=== PATIENT | female | born 1965 | race Caucasian/White ===

== ENCOUNTER 2016-07-29 08:16 | Emergency (ER) | payer MEDICAID ==
[~2016-07-29] VITALS: Wt 69.0 kg
[~2016-07-29 08:16] MED LIST: AMLO5TAB4 PO; ASPI-664 PO; LEVO25TA53 PO
[2016-07-29 08:34] VITALS: TEMP 97.9
--- NOTE | 2016-07-29 08:59 | RADRPT ---
PROCEDURE: Chest Radiograph. CLINICAL INDICATION: Stroke TECHNIQUE: Single frontal chest radiograph. COMPARISON: Chest radiograph 01/17/2016 FINDINGS: The cardiomediastinal silhouette is within normal limits. There is mild right greater than left bas ilar atelectasis. No infiltrate or effusion is seen. The bones are intact. IMPRESSION: 1. Mild basilar atelectasis. 2. No evidence of acute cardiopulmonary disease. RPTAT: KK .Al Pak MD, MD Date Time Electronically viewed and signed by .Al Pak MD, on 07/29/2016 08:58 .B/
[2016-07-29] MEDS ORDERED: MECLIZINE 12.5 MG TAB PO ONE (09:00)
[2016-07-29 09:10] LABS: ADD SCAN DIFF NO
[2016-07-29 09:13] LABS: BASOPHILS % 0.6 % (0.0-2.0); EOSINOPHILS # 0.1 10^3/ul (0.0-0.5); EOSINOPHILS % 3.5 % (0.0-7.0); HEMATOCRIT 41.5 % (37.0-47.0); HEMOGLOBIN 13.6 g/dl (12.0-16.0); LYMPHOCYTES # 1.2 10^3/ul (0.8-2.9); LYMPHOCYTES % 33.5 % (15.0-51.0); MEAN CORPUSCULAR HEMOGLOBIN 28.9 pg (29.0-33.0); MEAN CORPUSCULAR HGB CONC 32.8 g/dl (32.0-37.0); MEAN CORPUSCULAR VOLUME 88.1 fl (82.0-101.0); MEAN PLATELET VOLUME 9.6 fl (7.4-10.4); MONOCYTE # 0.3 10^3/ul (0.3-0.9); MONOCYTES % 8.5 % (0.0-11.0); NEUTROPHIL # 1.8 10^3/ul (1.6-7.5); NEUTROPHILS % 53.3 % (39.0-77.0); PLATELET COUNT 263 10^3/UL (140-415); RED BLOOD COUNT 4.71 10^6/ul (4.20-5.40); RED CELL DISTRIBUTION WIDTH 13.1 % (11.5-14.5); WHITE BLOOD COUNT 3.4 10^3/ul (4.8-10.8)
[2016-07-29 09:27] LABS: ALBUMIN 4.3 g/dl (3.3-4.9); CHLORIDE 103 mmol/L (97-110)
[2016-07-29 09:28] LABS: POTASSIUM 4.1 mmol/L (3.5-5.1); SODIUM 144 mmol/L (135-144)
[2016-07-29 09:30] LABS: ALBUMIN/GLOBULIN RATIO 1.16; ANION GAP 18 (8-16); ASPARTATE AMINO TRANSFERASE 26 IU/L (15-46); BILIRUBIN,INDIRECT 0.3 mg/dl (0-1.1); BILIRUBIN,TOTAL 0.3 mg/dl (0.2-1.3); BLOOD UREA NITROGEN 13 mg/dl (7-20); CARBON DIOXIDE 27 mmol/L (21-31); CREATININE 0.63 mg/dl (0.44-1.00)
[2016-07-29 09:31] LABS: ALANINE AMINOTRANSFERASE 37 IU/L (13-69); ALKALINE PHOSPHATASE 113 IU/L (42-121); CALCIUM 9.8 mg/dl (8.4-10.2); GLUCOSE 107 mg/dl (70-220)
[2016-07-29 09:46] LABS: TROPONIN-I < 0.012 ng/ml (0.00-0.12)
[2016-07-29 10:02] VITALS: BP 140/83; PULSE 85; RESP 16
--- NOTE | 2016-07-29 10:09 | RADRPT ---
PROCEDURE: CT Brain without. CLINICAL INDICATION: Dizziness. Nausea and vomiting. TECHNIQUE: A CT of the brain was performed on a multi-slice CT scanner utilizing axial sections fr om the skull base through the vertex without contrast. Coronal and sagittal reconstructed images w ere provided. One or more of the following does reduction techniques were used: Automated exposure control; adjustment of the mA and/or kV according to patient size; use of the aorta of reconstructi on technique. Images were reviewed on a high-resolution PACS workstation. The exam CTDI = 39.25 mGy . The exam DLP = 554.95 mGy-cm. COMPARISON: None available FINDINGS: The ventricles and sulci are symmetric and normal in size and morphology. There is no evidence of i ntracranial hemorrhage, mass effect, edema or midline shift. No abnormal intra-axial or extra-axial fluid collections are seen. The [place]/white matter differentiation is well preserved. The osseous structures and visualized sinuses are unremarkable. The mastoid air cells are clear. Th e surrounding soft tissue scalp and bony calvarium are intact and normal. IMPRESSION: 1. Unremarkable CT brain. RPTAT: KK .Al Pak MD, Date Time Electronically viewed and signed by .Al Pak MD, on 07/29/2016 10:09 .B/
[2016-07-29] MEDS ORDERED: MECL12.574 PO (10:17)
--- NOTE | 2016-07-29 10:21 | ERD ---
ER Documentation Chief Complaint Date/Time DATE: 07/29/16 TIME: 08 Chief Complaint dizziness and nausea and vomiting, no head trauma or guy. no neuro def HPI 51-year-old female presents the emergency department complaining of nausea and dizziness. Patient states she was in her usual state of health until last night at which time she had a vertiginous type dizziness. She reports no headache, difficulty speaking, focal weakness or numbness. She continued to feel dizzy and somewhat nauseous with this but had no significant emesis. When the dizziness continued, she came to the emergency department for evaluation. Patient reports no fevers or chills and no other neurologic GI or other symptoms. ROS All systems reviewed and are negative except as per history of present illness. Medications Home Meds Active Scripts Meclizine Hcl* (Antivert*) 12.5 Mg Tab, 12.5 MG PO Q6H Y for DIZZINESS, #20 TAB Prov:VERÓNICA GARCIA 07/29/16 Levothyroxine Sodium* (Levothyroxine Sodium*) 25 Mcg Tablet, 50 MCG PO BEFORE BREAKFAST for 30 Days, #30 TAB Prov:ISMAEL STUBBS MD 01/18/16 Aspirin* (Aspirin* EC) 81 Mg Tablet.dr, 81 MG PO DAILY for 30 Days, #30 Prov:ISMAEL STUBBS MD 01/18/16 Reported Medications Amlodipine Besylate* (Norvasc*) 5 Mg Tablet, 5 MG PO DAILY, TAB 01/17/16 Allergies Allergies: Coded Allergies: No Known Allergy (Unverified , 07/29/16) PMhx/Soc History of Surgery: Yes (d & c) Anesthesia Reaction: No Hx Neurological Disorder: No Hx Respiratory Disorders: No Hx Cardiac Disorders: Yes (HTN) Hx Psychiatric Problems: No Hx Miscellaneous Medical Probl: No Hx Alcohol Use: No Hx Substance Use: No Hx Tobacco Use: No FmHx Noncontributory for chief complaint Physical Exam Vitals Vital Signs Date Time Temp Pulse Resp B/P Pulse Ox O2 Delivery O2 Flow Rate FiO2 07/29/16 10:02 85 16 140/83 100 Room Air 07/29/16 08:34 97.9 99 14 169/86 100 Room Air 07/29/16 08:19 98.6 78 20 185/77 100 Physical Exam GENERAL: The patient is well developed and appropriate for usual state of health in no apparent distress HEENT: Pupils equal, round, and reactive to light. EOMI. There is no scleral icterus. NECK: C-spine is soft and supple, there is no meningismus. There is no cervical lymphadenopathy. LUNGS: Clear to auscultation bilaterally. There are no rales, wheezes or rhonchi. HEART: Regular rate and rhythm, no murmurs, clicks, rubs or gallops. ABDOMEN: Soft, non-tender, non-distended. There are bowel sounds in all four quadrants. No rebound or guarding. EXTREMITIES: There is no peripheral cyanosis or edema. No focal swelling or erythema. NEURO: The patient moves all four extremities with 5/5 strength. Cranial nerves II - XII are intact. Normal gait. Alert and oriented. Finger to nose is normal bilaterally. Patient has a normal speech, balance SKIN: There is no apparent rash or petechiae. HEME/LYMPHATIC: There is no evidence of excessive bruising or lymphedema. PSYCHIATRIC: The patient does not appear anxious or depressed. Result Diagram: 07/29/16 0852 07/29/16 0852 Results 24 hrs Laboratory Tests Test 07/29/16 08:52 Alanine Aminotransferase (ALT/SGPT) 37IU/L Albumin 4.3g/dl Albumin/Globulin Ratio 1.16 Alkaline Phosphatase 113IU/L Anion Gap 18 Aspartate Amino Transf (AST/SGOT) 26IU/L Basophils # 0.010^3/ul Basophils % 0.6% Blood Urea Nitrogen 13mg/dl Calcium Level 9.8mg/dl Carbon Dioxide Level 27mmol/L Chloride Level 103mmol/L Creatinine 0.63mg/dl Direct Bilirubin 0.00mg/dl Eosinophils # 0.110^3/ul Eosinophils % 3.5% Globulin 3.70g/dl Glucose Level 107mg/dl Hematocrit 41.5% Hemoglobin 13.6g/dl Indirect Bilirubin 0.3mg/dl Lymphocytes # 1.210^3/ul Lymphocytes % 33.5% Mean Corpuscular Hemoglobin 28.9pg Mean Corpuscular Hemoglobin Concent 32.8g/dl Mean Corpuscular Volume 88.1fl Mean Platelet Volume 9.6fl Monocytes # 0.310^3/ul Monocytes % 8.5% Neutrophils # 1.810^3/ul Neutrophils % 53.3% Nucleated Red Blood Cells # 0.010^3/ul Nucleated Red Blood Cells % 0.0/100WBC Platelet Count 78304^3/UL Potassium Level 4.1mmol/L Red Blood Count 4.7110^6/ul Red Cell Distribution Width 13.1% Sodium Level 144mmol/L Total Bilirubin 0.3mg/dl Total Protein 8.0g/dl Troponin I < 0.012ng/ml White Blood Count 3.410^3/ul Current Medications Medications (Trade) Dose Ordered Sig/Magaly Route PRN Reason Start Time Stop Time Status Last Admin Dose Admin Meclizine HCl (Antivert) 25 mg ONCE ONCE PO 07/29/16 09:00 07/29/16 09:01 DC 07/29/16 08:58 Procedures/MDM Patient was taken to a room, seen and evaluated. Comfort measures were initiated. Diagnostic tests were ordered and reviewed. 3 LEAD RHYTHM STRIP: Normal sinus rhythm without ectopy 12 lead EKG interpreted by myself: Rate/rhythm: Normal sinus rhythm [place]/intervals: Normal Ischemia: Nonspecific ST and T-wave changes with no ST elevation Impression:Nonspecific EKG RADIOLOGY: reviewed with the radiologist REEVALUATION: Patient has remained neurologically normal and nonfocal. She appears asymptomatic after symptomatic management in the emergency department. MEDICAL DECISION MAKING: A 51-year-old female presents to the emergency department with vertigo. Differential diagnosis entertained was broad and potential high acuity focusing on neurologic concerns. At this time, based on lab work and imaging studies and the patient's overall presentation, patient has no evidence of stroke or focal neurologic deficit. This appears to be a peripheral type vertigo. Patient has had improvement with symptomatic care in the emergency department. Patient shows no evidence of anemia, infection, electrolyte or cardiac concerns causing the symptoms. Overall, patient appears to be appropriate for outpatient supportive care. Departure Diagnosis: Primary Impression: Dizziness Condition: Stable Patient Instructions: Dizziness (Vertigo) and Balance Problems: Ensuring Your Safety, Dizziness, Unk Cause Additional Instructions: Please see your doctor in the next 2 days for a recheck. Return for any problems or concerns VERÓNICA GARCIA Jul 29, 2016 10:21
== END 2016-07-29 10:39 | disposition home or self-care (01) ==
LOC: E/R 08:16
DX: R42 Dizziness and giddiness (principal); I10 Essential (primary) hypertension; R40.2142 Coma scale, eyes open, spontaneous, at arrival to emergency department; R40.2252 Coma scale, best verbal response, oriented, at arrival to emergency department; R40.2362 Coma scale, best motor response, obeys commands, at arrival to emergency department; Z79.82 Long term (current) use of aspirin
CPT/HCPCS: 36415; 70450; 71010; 80053; 84484; 85025; 93005; Z7502; Z7610

== ENCOUNTER 2017-02-17 17:39 | Emergency (ER) | payer MEDICAID ==
[~2017-02-17] VITALS: Ht 162.6 cm; Wt 68.0 kg
[~2017-02-17 17:39] MED LIST changes: +MECL12.574 PO
[2017-02-17 17:44] VITALS: Ht 162.6 cm; Wt 68.0 kg
[2017-02-17] MEDS ORDERED: KETOROLAC 60 MG INJ IM STA (19:42)
[2017-02-17] MEDS ORDERED: CARI350T PO (20:02)
[2017-02-17] MEDS ORDERED: TRAM50TA2 PO (20:02)
--- NOTE | 2017-02-17 20:25 | ERA ---
ER Documentation Chief Complaint Date/Time DATE: 02/17/17 Chief Complaint pt bib family with c/o back pain starting this am HPI The patient is a 52-year-old female, presenting with acute on chronic low back pain for 1 day, denies dysuria, fecal/urinary incontinence, neck pain, chest pain, abdominal pain, vomiting. She does not smoke nor drink, denies any history of IV drug abuse Past medical history: Chronic low back pain, dyslipidemia, hypertension Past surgical history: None ROS All systems reviewed and are negative except as per history of present illness. Medications Home Meds Active Scripts Carisoprodol* (Soma*) 350 Mg Tablet, 350 MG PO TID Y for MUSCLE SPASMS, #15 TAB Prov:RENAY HUYNH MD 02/17/17 Tramadol HCl (Tramadol HCl) 50 Mg Tablet, 50 MG PO Q6 Y for PAIN, #15 TAB Prov:RENAY HUYNH MD 02/17/17 Meclizine Hcl* (Antivert*) 12.5 Mg Tab, 12.5 MG PO Q6H Y for DIZZINESS, #20 TAB Prov:VERÓNICA GARCIA 07/29/16 Levothyroxine Sodium* (Levothyroxine Sodium*) 25 Mcg Tablet, 50 MCG PO BEFORE BREAKFAST for 30 Days, #30 TAB Prov:ISMAEL STUBBS MD 01/18/16 Aspirin* (Aspirin* EC) 81 Mg Tablet.dr, 81 MG PO DAILY for 30 Days, #30 Prov:ISMAEL STUBBS MD 01/18/16 Reported Medications Amlodipine Besylate* (Norvasc*) 5 Mg Tablet, 5 MG PO DAILY, TAB 01/17/16 Allergies Allergies: Coded Allergies: No Known Allergy (Unverified , 07/29/16) PMhx/Soc History of Surgery: Yes (d & c) Anesthesia Reaction: No Hx Neurological Disorder: No Hx Respiratory Disorders: No Hx Cardiac Disorders: Yes (HTN) Hx Psychiatric Problems: No Hx Miscellaneous Medical Probl: No Hx Alcohol Use: No Hx Substance Use: No Hx Tobacco Use: No Smoking Status: Never smoker Physical Exam Vitals Vital Signs Date Time Temp Pulse Resp B/P Pulse Ox O2 Delivery O2 Flow Rate FiO2 02/17/17 17:44 99.0 105 16 155/77 98 Physical Exam Const: No acute distress. Head: Atraumatic. Eyes: Normal Conjunctiva. ENT: Normal External Ears, Nose and Mouth. Neck: Full range of motion. No meningismus. Resp: Clear to auscultation bilaterally. Cardio: Regular rate and rhythm. Abd: Soft, non distended, normal bowel sounds, non tender. Skin: No petechiae or rashes. Back: No midline or flank tenderness.Positive straight leg raising test on the left lower extremity Ext: No cyanosis, or edema. Neur: Awake and alert. No focal deficit Psych: Normal Mood and Affect. Results 24 hrs Current Medications Medications (Trade) Dose Ordered Sig/Magaly Route PRN Reason Start Time Stop Time Status Last Admin Dose Admin Ketorolac Tromethamine (Toradol) 60 mg ONCE STAT IM 02/17/17 19:42 02/17/17 19:43 DC 02/17/17 19:48 Procedures/MDM MEDICAL MAKING DECISION: The patient is a 52-year-old female, presenting with acute and chronic low back pain. She was treated Toradol 60 mg IM for pain with good response. She is stable for outpatient follow-up The differential diagnoses considered include but are not limited to caudal equina syndrome, spinal abscess, DJD, diskitis, lumbar radiculopathy. Departure Diagnosis: Primary Impression: Back pain with sciatica Condition: Good Patient Instructions: Back Pain W/ Sciatica Ref[facility]: [facility] Usted se guy hecho un examen mdico de control que le indica que no est en rima condicin que requiera tratamiento urgente en el Departamento de Emergencia. Un estudio ms profundo y el tratamiento de godinez condicin pueden esperar sin ningn riesgo hasta que usted sea atendida/o en el consultorio de godinez mdico o rima cl francisco. Es responsabilidad suya arreglar rima rosa para el seguimiento del phani. MANEJO DE CONDICIONES NO URGENTES EN EL FUTURO 1) Si usted tiene un mdico de atencin primaria: Usted debera llamar a godinez mdico de atencin primaria antes de venir al departamento de emergencia. Despus de las horas de consultorio, godinez doctor o godinez asociado/a est disponible por telfono. El mdico o enfermero de jeremy en el servicio telefnico puede asesorarle por everardo medio para atender el problema, o phani contrario se puede programar rima rosa. 2) Si usted no tiene un mdico de atencin primaria: Llame al mdico o clnica de referencia que aparece abajo michelle las horas de consultorio para hacer rima rosa para que le vean. CLINICAS: [facility] [phone] [address] [facility] [phone] [facility] [phone] [facility]. [place] [phone] [facility] [place] [phone] [facility] [phone] [address] [facility]. [facility] () Usted se guy hecho un examen mdico de control que le indica que no est en rima condicin que requiera tratamiento urgente en el Departamento de Emergencia. Un estudio ms profundo y el tratamiento de godinez condicin pueden esperar sin ningn riesgo hasta que usted sea atendida/o en el consultorio de godinez mdico o rmia cl francisco. Es responsabilidad suya arreglar rima rosa para el seguimiento del phani. MANEJO DE CONDICIONES NO URGENTES EN EL FUTURO 1) Si usted tiene un mdico de atencin primaria: Usted debera llamar a godinez mdico de atencin primaria antes de venir al departamento de emergencia. Despus de las horas de consultorio, godinez doctor o godinez asociado/a est disponible por telfono. El mdico o enfermero de jeremy en el servicio telefnico puede asesorarle por everardo medio para atender el problema, o phani contrario se puede programar rima rosa. 2) Si usted no tiene un mdico de atencin primaria: Llame al mdico o condado institucions de referencia que aparece abajo michelle las horas de consultorio para hacer rima rosa para que le vean. SI USTED NO PUEDE PAGAR PARA MATT UN MEDICO puede ir a: [facility] [address] [place] [address] [facility] [address] [place] [address] [facility] [address] [place] [address] [facility] [address] [place] [address] Additional Instructions: Call your primary care doctor TOMORROW for an appointment during the next 2-3 days.See the doctor sooner or return here if your condition worsens before your appointment time. If the pain is persistent, you need MRI for further evaluation She was discharged with Félix and Fred I discussed the findings with the patient. I advised the patient to follow-up with the primary physician in about 1-2 days, sooner if needed and return if any concern. RENAY HUYNH MD Feb 17, 2017 20:25
== END 2017-02-17 20:08 | disposition home or self-care (01) ==
LOC: FTE 17:39
DX: M54.42 Lumbago with sciatica, left side (principal); I10 Essential (primary) hypertension; Z79.82 Long term (current) use of aspirin
CPT/HCPCS: 96372; J1885; Z7502

== ENCOUNTER 2017-04-14 13:54 | Emergency (ER) | payer MEDICAID ==
[~2017-04-14] VITALS: Ht 160 cm; Wt 68.7 kg
[~2017-04-14 13:54] MED LIST changes: +CARI350T PO; +TRAM50TA2 PO
[2017-04-14 14:00] VITALS: Ht 160 cm; Wt 68.7 kg
[2017-04-14] MEDS ORDERED: KETOROLAC 60 MG INJ IM STA (14:45)
[2017-04-14 15:41] LABS: ADD UMIC YES; UR ASCORBIC ACID NEGATIVE (NEGATIVE); UR BILIRUBIN (Dip) NEGATIVE (NEGATIVE); UR BLOOD (Dip) 1+ mg/dL (NEGATIVE); UR CLARITY CLEAR (CLEAR); UR COLOR STRAW (YELLOW); UR GLUCOSE (Dip) NEGATIVE (NEGATIVE); UR KETONES (Dip) NEGATIVE (NEGATIVE); UR LEUKOCYTE ESTERASE (Dip) NEGATIVE Leu/ul (NEGATIVE); UR NITRITE (Dip) NEGATIVE (NEGATIVE); UR RBC 1 /HPF (0-5); UR SPECIFIC GRAVITY (Dip) 1.004 (1.003-1.030); UR TOTAL PROTEIN (Dip) NEGATIVE (NEGATIVE); UR UROBILINOGEN (Dip) NEGATIVE (NEGATIVE)
--- NOTE | 2017-04-14 16:04 | RADRPT ---
PROCEDURE: XR lumbar spine CLINICAL INDICATION: Back pain TECHNIQUE: 3 views of the lumbar spine obtained COMPARISON: None available FINDINGS: No fracture or dislocation is identified. There is very mild levoconvex lumbar curvature/scoliosis. Mild anterior osteophytes are seen at the L3-4 through L5-S1 levels. There is disc space narrowing a t L5-S1, severe posteriorly with vacuum disc changes. Facet arthropathy is seen at the L5-S1 level. IMPRESSION: Lumbar spondylosis/degenerative enthesopathy as described above, more pronounced at L5-S1. Very mild levoconvex lumbar curvature/scoliosis. .Adalid Antoine MD, MD Date Time Electronically viewed and signed by .Adalid Antoine MD, on 04/14/2017 16:03 .O/
--- NOTE | 2017-04-14 16:04 | RADRPT ---
PROCEDURE: XR, left knee. CLINICAL INDICATION: Pain. TECHNIQUE: 3 views of the knee are available for review. COMPARISON: None available. FINDINGS: The osseous structures, articular spaces, and surrounding soft tissues of the knee are all unremarka ble. No acute fracture or dislocation is seen. There is mild to moderate joint effusion. No radiop aque foreign body is identified. Alignment is anatomic. IMPRESSION: 1. Mild to moderate joint effusion. RPTAT: GG .Eric Bennett MD, MD Date Time Electronically viewed and signed by .Eric Bennett MD, MD on 04/14/2017 16:04 .Y/
--- NOTE | 2017-04-14 16:04 | RADRPT ---
PROCEDURE: XR Left Hip. CLINICAL INDICATION: Left hip pain. TECHNIQUE: Two views. Frontal and lateral. COMPARISON: No prior studies are available for comparison. FINDINGS: There is no fracture or dislocation. The soft tissues are normal. Articular surfaces are intact. There is no lytic or blastic lesion. There is no radiopaque foreign body. IMPRESSION: 1. Normal images of the left hip. RPTAT: QQ .Jose Gustafson MD, MD Date Time Electronically viewed and signed by .Jose Gustafson MD, MD on 04/14/2017 16:04 .R/
[2017-04-14] MEDS ORDERED: TRAM50TA2 PO (16:22)
[2017-04-14] MEDS ORDERED: IBUP-1542 PO (16:22)
--- NOTE | 2017-04-14 16:28 | ERD ---
ER Documentation Chief Complaint Chief Complaint left knee pain s/p fall 3 days ago HPI This 52-year-old female complains of left knee pain, low back pain left hip pain. She may have had an awkward 3 days ago but denies any significant trauma. She denies any bowel or bladder incontinence, weakness, urinary complaints, fevers. ROS All systems reviewed and are negative except as per history of present illness. Medications Home Meds Active Scripts Tramadol HCl (Tramadol HCl) 50 Mg Tablet, 50 MG PO Q4 Y for PAIN, #15 TAB Prov:DOC SPEAR MD 04/14/17 Ibuprofen* (Motrin*) 600 Mg Tab, 600 MG PO Q6, #20 TAB Prov:DOC SPEAR MD 04/14/17 Carisoprodol* (Soma*) 350 Mg Tablet, 350 MG PO TID Y for MUSCLE SPASMS, #15 TAB Prov:RENAY HUYNH MD 02/17/17 Tramadol HCl (Tramadol HCl) 50 Mg Tablet, 50 MG PO Q6 Y for PAIN, #15 TAB Prov:RENAY HUYNH MD 02/17/17 Meclizine Hcl* (Antivert*) 12.5 Mg Tab, 12.5 MG PO Q6H Y for DIZZINESS, #20 TAB Prov:VERÓNICA GARCIA 07/29/16 Levothyroxine Sodium* (Levothyroxine Sodium*) 25 Mcg Tablet, 50 MCG PO BEFORE BREAKFAST for 30 Days, #30 TAB Prov:ISAMEL STUBBS MD 01/18/16 Aspirin* (Aspirin* EC) 81 Mg Tablet.dr, 81 MG PO DAILY for 30 Days, #30 Prov:ISMAEL STUBBS MD 01/18/16 Reported Medications Amlodipine Besylate* (Norvasc*) 5 Mg Tablet, 5 MG PO DAILY, TAB 01/17/16 Allergies Allergies: Coded Allergies: No Known Allergy (Unverified , 07/29/16) PMhx/Soc History of Surgery: Yes (d & c) Anesthesia Reaction: No Hx Neurological Disorder: No Hx Respiratory Disorders: No Hx Cardiac Disorders: Yes (HTN) Hx Psychiatric Problems: No Hx Miscellaneous Medical Probl: Yes (THYROID, HIGH CHOLESTEROL ) Hx Alcohol Use: No Hx Substance Use: No Hx Tobacco Use: No Smoking Status: Never smoker Physical Exam Vitals Vital Signs Date Time Temp Pulse Resp B/P Pulse Ox O2 Delivery O2 Flow Rate FiO2 04/14/17 14:00 98.1 93 18 170/78 99 Physical Exam Const: [] Alert, [id number] per Head: Atraumatic Eyes: Normal Conjunctiva ENT: Normal External Ears, Nose and Mouth. Neck: Full range of motion..~ No meningismus. Resp: Clear to auscultation bilaterally Cardio: Regular rate and rhythm, no murmurs Abd: Soft, non tender, non distended. Normal bowel sounds Skin: No petechiae or rashes Back: No midline or flank tenderness. Tenderness in the left L4-L5 area. Some mild pain with passive range of motion left hip and external rotation. Ext: No cyanosis, or edema. Some generalized tenderness of the left knee with slight effusion. Is no warmth erythema or deformities. There is no calf swelling or Homans sign. Neur: Awake and alert Psych: Normal Mood and Affect Results 24 hrs Laboratory Tests Test 04/14/17 15:05 Urine Color STRAW Urine Clarity CLEAR Urine pH 6.0 Urine Specific [place] 1.004 Urine Ketones NEGATIVEmg/dL Urine Nitrite NEGATIVEmg/dL Urine Bilirubin NEGATIVEmg/dL Urine Urobilinogen NEGATIVEmg/dL Urine Leukocyte Esterase NEGATIVELeu/ul Urine Microscopic RBC 1/HPF Urine Microscopic WBC 1/HPF Urine Hemoglobin 1+mg/dL Urine Glucose NEGATIVEmg/dL Urine Total Protein NEGATIVEmg/dl Current Medications Medications (Trade) Dose Ordered Sig/Magaly Route PRN Reason Start Time Stop Time Status Last Admin Dose Admin Ketorolac Tromethamine (Toradol) 60 mg ONCE STAT IM 04/14/17 14:45 04/14/17 14:47 DC 04/14/17 15:11 Procedures/MDM X-ray left hip 2V Interpreted by me: Bones: [No fracture] Joints: [No dislocation] Foreign body: [None]. Impression-normal left hip x-ray X-ray left knee 3V Interpreted by me: Bones: [No fracture] Joints: [No dislocation] Foreign body: [None] patient have no fracture dislocation left knee x- ray X-ray LS-Spine 3V Interpreted by me: Bones: No fracture, or lytic lesions Joints: No dislocation Foreign body: None impression-mild degenerative changes at L3-L4, L5-S1 Patient is given Toradol 60 mg IM. Resents with low back pain, left hip and left knee pain without evidence of fracture, dislocation. Current signs or symptoms do not suggest abdominal pain or abdominal etiology. She appears to have musculoskeletal pain there is no evidence of a DVT, signs to suggest epidural abscess, neurologic deficit, additional emergent complications of presenting complaints. She will treated with tramadol and ibuprofen, primary care follow-up and return precautions. The patient was stable with no new complaints during the ER course. Clinically, there is no current evidence to suggest meningitis, sepsis, acute abdomen, pneumonia, acute coronary syndrome, pulmonary embolism, or any other emergent condition appearing to require further evaluation or hospitalization. The patient should certainly return for any new or worsening symptoms per the aftercare instructions. They should otherwise follow-up with her primary care doctor for reevaluation this week.. Departure Diagnosis: Primary Impression: Knee pain Chronicity: acute Laterality: left Qualified Code: M25.562 - Acute pain of left knee Additional Impression: Back pain with sciatica Condition: Stable Patient Instructions: Knee Pain, Uncertain Cause, Back Pain W/ Sciatica Referrals: NO PRIMARY,CARE PHYSICIAN (PCP) [facility] Usted se guy hecho un examen mdico de control que le indica que no est en rima condicin que requiera tratamiento urgente en el Departamento de Emergencia. Un estudio ms profundo y el tratamiento de godinez condicin pueden esperar sin ningn riesgo hasta que usted sea atendida/o en el consultorio de godinez mdico o rima cl francisco. Es responsabilidad suya arreglar rima rosa para el seguimiento del phani. MANEJO DE CONDICIONES NO URGENTES EN EL FUTURO 1) Si usted tiene un mdico de atencin primaria: Usted debera llamar a godinez mdico de atencin primaria antes de venir al departamento de emergencia. Despus de las horas de consultorio, godinez doctor o godinez asociado/a est disponible por telfono. El mdico o enfermero de jeremy en el servicio telefnico puede asesorarle por everardo medio para atender el problema, o phani contrario se puede programar rima rosa. 2) Si usted no tiene un mdico de atencin primaria: Llame al mdico o clnica de referencia que aparece abajo michelle las horas de consultorio para hacer rima rosa para que le vean. CLINICAS: [facility] [phone] [facility] [phone] [facility] [phone] [address] [facility] [phone] [facility] [phone] [address] [facility] [phone] [address] Additional Instructions: probablamente artritis, tendonitis. Cheque otro vez con godinez doctor primario en el proximo holman or regresa para mas o nueva simptomas- fiebre smith. DOC SPEAR MD Apr 14, 2017 16:28
[2017-04-14 16:39] VITALS: BP 118/64; PULSE 74; RESP 19; TEMP 98.2
== END 2017-04-14 16:39 | disposition home or self-care (01) ==
LOC: FTE 13:54
DX: M25.562 Pain in left knee (principal); M54.42 Lumbago with sciatica, left side; I10 Essential (primary) hypertension; Z79.82 Long term (current) use of aspirin
CPT/HCPCS: 72100; 73510; 73562; 81001; 96372; J1885; Z7502

== ENCOUNTER 2017-07-31 00:53 | Emergency (ER) | END 2017-07-31 07:05 | disposition home or self-care (01) ==

== ENCOUNTER 2018-01-04 05:51 | Emergency (ER) | END 2018-01-04 12:40 | disposition home or self-care (01) ==